=== PATIENT | female | born 1945 | race Caucasian/White ===

== ENCOUNTER 2022-12-25 06:54 | Day surgery (SDC) | payer MEDICARE, SELFPAY ==
[2022-12-13 08:37] VITALS: BMI 26.7
--- NOTE | 2022-12-17 06:21 | PM.IMHP ---
H&P: HPI History of Present Illness Date/Time: 12/17/22 06:21 Chief Complaint: patient has a salivary duct stone. Narrative: After a long conversation with patient Benefits, risks and procedures were explained. Patient is agreeable to procedure. [facility] Past Medical History Medical History CAD (coronary artery disease) Heart disease Hypertension IBS (irritable bowel syndrome) Stone of salivary duct Family History Family History Mother Family history of malignant neoplasm of urinary bladder Other Family history of cardiovascular disease Social History Social History Social History: Caffeine-coffee Smoking packs per day: 1.5 Smoking cigarettes per day: 30.0 Years smoked: 60 Smoking pack-years: 90.00 Smoking status: Current every day smoker Tobacco type: cigarettes Second hand tobacco smoke exposure: No Alcohol intake: current Drinks per week: 2 Alcohol use details: wine/beer Substance use: never Substance use type: does not use Lack of Transportation: No Lack of Food: Never True Current Housing: I Have Housing Concerned About Future Housing: No Difficulty Paying Gas/Electric Bills: No Difficulty Paying for Meds: No Education: Trade/Vocational Certificate Difficulty w/ Childcare or Family Care: No Living arrangements: alone Spiritual care concerns: No Meds Home Medications and Allergies Home Medications Medication Instructions Recorded Confirmed Type amoxicillin 875 mg-potassium 1 tablet PO BID #20 tabs 12/10/22 12/13/22 Rx clavulanate 125 mg tablet atorvastatin 80 mg tablet 80 mg PO DAILY 12/10/22 12/25/22 History clopidogrel 75 mg tablet 75 mg PO DAILY 12/10/22 12/25/22 History ezetimibe 10 mg tablet 10 mg PO DAILY 12/10/22 12/13/22 History metoprolol succinate 25 mg 12.5 mg PO DAILY 12/10/22 12/25/22 History tablet,extended release 24 hr valsartan 160 mg tablet 160 mg PO DAILY 12/10/22 12/13/22 History nifedipine 30 mg tablet,extended 30 mg PO DAILY 12/13/22 12/13/22 History release 24 hr Allergies Allergy/AdvReac Type Severity Reaction Status Date / Time No Known Allergies Allergy Unknown Verified 12/25/22 07:23
[2022-12-25 07:15] VITALS: BP 162/64; PULSE 75; RESP 20; TEMP 36.7; O2SAT 98
--- NOTE | 2022-12-25 07:19 | P.HP_ITS ---
H&P: HPI History of Present Illness Date/Time: 12/25/22 07:19 Chief Complaint: stone in duct salivary Review of Systems Review of Systems: All systems reviewed & are unremarkable except as noted in HPI and below ENT: Reports as per HPI [facility] Past Medical History Medical History (Updated 12/25/22 @ 07:21 by Derek Trevino MD) CAD (coronary artery disease) Heart disease Hypertension IBS (irritable bowel syndrome) Stone of salivary duct Family History Family History Mother Family history of malignant neoplasm of urinary bladder Other Family history of cardiovascular disease Social History Social History Social History: Caffeine-coffee Smoking packs per day: 1.5 Smoking cigarettes per day: 30.0 Years smoked: 60 Smoking pack-years: 90.00 Smoking status: Current every day smoker Tobacco type: cigarettes Second hand tobacco smoke exposure: No Alcohol intake: current Drinks per week: 2 Alcohol use details: wine/beer Substance use: never Substance use type: does not use Lack of Transportation: No Lack of Food: Never True Current Housing: I Have Housing Concerned About Future Housing: No Difficulty Paying Gas/Electric Bills: No Difficulty Paying for Meds: No Education: Trade/Vocational Certificate Difficulty w/ Childcare or Family Care: No Living arrangements: alone Spiritual care concerns: No Meds Home Medications and Allergies Home Medications Medication Instructions Recorded Confirmed Type amoxicillin 875 mg-potassium 1 tablet PO BID #20 tabs 12/10/22 12/13/22 Rx clavulanate 125 mg tablet atorvastatin 80 mg tablet 80 mg PO DAILY 12/10/22 12/13/22 History clopidogrel 75 mg tablet 75 mg PO DAILY 12/10/22 12/13/22 History ezetimibe 10 mg tablet 10 mg PO DAILY 12/10/22 12/13/22 History metoprolol succinate 25 mg 12.5 mg PO DAILY 12/10/22 12/13/22 History tablet,extended release 24 hr valsartan 160 mg tablet 160 mg PO DAILY 12/10/22 12/13/22 History nifedipine 30 mg tablet,extended 30 mg PO DAILY 12/13/22 12/13/22 History release 24 hr Allergies Allergy/AdvReac Type Severity Reaction Status Date / Time No Known Allergies Allergy Unknown Verified 12/13/22 08:41 Exam Narrative: stone in duct Assessment and Plan Assessment and plan (1) Stone of salivary duct: Code(s): K11.5 - Sialolithiasis Status: Acute Plan removalof stone
--- NOTE | 2022-12-25 07:22 | WPDHPUPDATE1 ---
History and Physical Update Update Date/Time: 12/25/22 07:22 History and Physical has been reviewed, including an updated exam of the patient. There are NO changes in the patient's condition. Risks, benefits, and alternatives have been discussed and questions answered. Patient agrees to proceed with procedure.
[2022-12-25] MEDS: LACTATED RINGERS 1,000 ML 30 ML IV CONT (07:35)
--- NOTE | 2022-12-25 08:57 | WPDANESEPPF ---
Anes - Initial Pre Proc Eval Procedure: Operation Date: 12/25/22 08:30 Proposed Procedures p Excision Right Submandibular Gland - Derek Trevino MD Date/Time: 12/25/22 08:57 Surgeon: Derek Trevino MD Pre Op Diagnosis: Sialadenitis Patient Data Age: 77 Gender: F Height: 1.65 m Weight: 73.3 kg Last Vital Signs Temp 36.7 C 12/25/22 07:15 Pulse 75 12/25/22 07:15 Resp 20 12/25/22 07:15 BP 162/64 H 12/25/22 07:15 Pulse Ox 98 12/25/22 07:15 O2 Del Method Room Air 12/25/22 07:15 Allergies Allergy/AdvReac Type Severity Reaction Status Date / Time No Known Allergies Allergy Unknown Verified 12/25/22 07:23 Home Medications Medication Instructions Recorded Confirmed Type amoxicillin 875 mg-potassium 1 tablet PO BID #20 tabs 12/10/22 12/13/22 Rx clavulanate 125 mg tablet atorvastatin 80 mg tablet 80 mg PO DAILY 12/10/22 12/25/22 History clopidogrel 75 mg tablet 75 mg PO DAILY 12/10/22 12/25/22 History ezetimibe 10 mg tablet 10 mg PO DAILY 12/10/22 12/13/22 History metoprolol succinate 25 mg 12.5 mg PO DAILY 12/10/22 12/25/22 History tablet,extended release 24 hr valsartan 160 mg tablet 160 mg PO DAILY 12/10/22 12/13/22 History nifedipine 30 mg tablet,extended 30 mg PO DAILY 12/13/22 12/13/22 History release 24 hr Patient hx anesthesia problems: none Family hx anesthesia problems: none Results Review: All pre-operative results and documents have been reviewed as part of the pre-operative evaluation. [facility] Past Medical History Medical History CAD (coronary artery disease) Heart disease Hypertension IBS (irritable bowel syndrome) Stone of salivary duct Family History Family History Mother Family history of malignant neoplasm of urinary bladder Other Family history of cardiovascular disease Social History Social History Social History: Caffeine-coffee Smoking packs per day: 1.5 Smoking cigarettes per day: 30.0 Years smoked: 60 Smoking pack-years: 90.00 Smoking status: Current every day smoker Tobacco type: cigarettes Second hand tobacco smoke exposure: No Alcohol intake: current Drinks per week: 2 Alcohol use details: wine/beer Substance use: never Substance use type: does not use Lack of Transportation: No Lack of Food: Never True Current Housing: I Have Housing Concerned About Future Housing: No Difficulty Paying Gas/Electric Bills: No Difficulty Paying for Meds: No Education: Trade/Vocational Certificate Difficulty w/ Childcare or Family Care: No Living arrangements: alone Spiritual care concerns: No Anes - Eval Final PreProcedure Day of Procedure 12/25/22 08:57 Patient weight: overweight Heart: regular rate and rhythm Lungs: decreased breath sounds Airway: Mallampati scale class II Neurological: alert and oriented Last oral intake: >/= 8 hours ASA classification: III Emergent: no Anesthetic plan: proceed Anesthesia type and monitoring: general ETT and standard monitoring Results Review: All pre-operative results and documents have been reviewed as part of the pre-operative evaluation. Informed Consent: The patient's anesthetic plan and its attendant risks and benefits were discussed with the patient/family/POA. Questions were solicited and answers provided to the satisfaction of the patient/family/POA.
[2022-12-25] MEDS: LIDO 1%/EPINEPHRINE 1:100,000 50 ML VIAL INFILTRATE (09:22)
--- NOTE | 2022-12-25 09:26 | W.PM.PROC2 ---
Procedure Note - Detailed Date of Procedure 12/25/22 Pre-op Diagnosis Sialadenitis Post-op Diagnosis Same Procedure Performed after induction of local anesthesia an incision was made over the prominence of the duct ear appeared to be a stone however more than likely it was calcified duct this was excised just cauterized procedure terminated Surgeon Derek Trevino MD Anesthesia General Description of Procedure removal of calcified duct Estimated Blood Loss 1 Pathology Yes Disposition PACU
[2022-12-25 09:31] VITALS: BP 96/47; PULSE 74; RESP 16; TEMP 36.3; O2SAT 98
--- NOTE | 2022-12-25 09:44 | SUR.PHASEI ---
PT AWAKE, DRY HACKING COUGH. DR WOLF AT BEDSIDE, ASKED PT HOW MUCH SHE SMOKES. PT STATES 2 PPD
[2022-12-25 09:45] VITALS: BP 118/86; PULSE 86; RESP 22; O2SAT 100
--- NOTE | 2022-12-25 09:54 | SUR.PHASEI ---
PT AWAKE AND ALERT. DRY HACKING COUGH. PT ASKING FOR WATER, DRINK GIVEN.
[2022-12-25 09:55] VITALS: BP 123/67; PULSE 79; RESP 18; O2SAT 95
[2022-12-25 10:03] VITALS: BP 130/77; PULSE 83; RESP 20; O2SAT 100
--- NOTE | 2022-12-25 10:22 | WPDANESPN ---
Anes - Prog Note Post-Op Date/Time: 12/25/22 10:22 Cardiovascular status: normal Respiratory status: normal Airway patency: baseline Mental status: baseline Post-Op hydration status: normal Vital Signs: Last Vital Signs Temp 36.3 C L 12/25/22 09:31 Pulse 83 12/25/22 10:03 Resp 20 12/25/22 10:03 BP 130/77 12/25/22 10:03 Pulse Ox 100 12/25/22 10:03 O2 Del Method Room Air 12/25/22 10:03 O2 Flow Rate 6 12/25/22 09:45 Pain Score (VAS): 0 I/O: Intake & Output 12/24/22 12/25/22 12/25/22 23:59 07:59 15:59 Intake Total 100 Balance 100 Patient Feedback: Patient satisfied with anesthetic care.
[2022-12-25 10:24] VITALS: BP 131/66; PULSE 80; RESP 20; O2SAT 100
--- NOTE | 2022-12-25 10:33 | SUR.PHASEII ---
PT AWAKE AND ALERT. DRESSED AND WAITING FOR RIDE HOME
== END 2022-12-25 10:40 | disposition home or self-care (01) ==
PROVIDERS: PCP Internal Medicine; Visit Provider Otolaryngology
PROC: (CPT 42408; principal; 2022-12-25 08:30)
DX: K11.5 Sialolithiasis (principal)
CPT/HCPCS: 42440

== ENCOUNTER 2022-12-25 08:00 | Outpatient (NON) | payer MEDICARE, SELFPAY | END 2022-12-25 08:01 | disposition home or self-care (01) | LOC: ANHLAB 12-26 08:07 | PROVIDERS: PCP Internal Medicine; Visit Provider Otolaryngology | DX: K11.5 Sialolithiasis (principal) | CPT/HCPCS: 82365; 88300; 88304 ==

== ENCOUNTER 2023-12-02 09:21 | Outpatient (CLI) | payer MEDICARE, SELFPAY ==
--- NOTE | ~2023-12-02 | CT_ITS ---
CT Scan of the Chest without Contrast: Clinical Indication: Lung cancer screening, nicotine dependence Technique: Contiguous sections were acquired throughout the chest without intravenous contrast. Dose reduction technique was used on this scan by utilizing automated exposure control and iterative recon struction technique. The dose-length product (DLP) was 68.76 mGy-cm. Findings: There is no evidence of any significant mediastinal, hilar or axillary lymphadenopathy. There are ath erosclerotic calcifications of the aorta and coronary arteries. There is no evidence of pleural or pericardial effusion. There is moderate to severe emphysema with biapical scarring. No pulmonary nodule evident. Images through the upper abdomen reveal no abnormalities. Impression: Lung RADS 2: Benign appearance. 12 month follow-up screening CT advised. Reviewed, dictated and finalized at location . Impression: Lung RADS 2: Benign appearance. 12 month follow-up screening CT advised.
== END 2023-12-02 09:22 ==
LOC: MICIMG 09:22
PROVIDERS: PCP Internal Medicine; Visit Provider Internal Medicine
DX: Z12.2 Encounter for screening for malignant neoplasm of respiratory organs (principal); Z87.891 Personal history of nicotine dependence
CPT/HCPCS: 71271